=== PATIENT | male | born 1985 | race Caucasian/White ===

== ENCOUNTER 2022-08-16 12:39 | Emergency (ER) | payer OTHER, SELFPAY ==
--- NOTE | 2022-08-16 12:49 | ED.GENADULT ---
HPI - General Adult General Chief complaint: Unspecified Stated complaint: RECTAL PAIN Time Seen by Provider: 08/16/22 12:49 Source: patient and RN notes reviewed History of Present Illness HPI narrative: Patient is a 36-year-old male who presents to urgent care with complaints of rectal pain for the last month. Patient states that for the last 2 weeks it has gotten worse and more specifically this morning. Patient has a history of an anal fistula which needed surgical repair. Patient states that he has been taking Tylenol and ibuprofen for the pain. States that he called a colorectal surgeon and Dr. Shaila guevara and they advised him to obtain a referral in order to be seen prior to October. Patient states that he does not have a PCP and that he is solely here for a referral. Patient denies of any abdominal pain, nausea or vomiting. States he believes the pain has been worse since he has been driving a lot within the last week and is doing some heavy lifting at home. No other acute complaints. No acute distress noted. Patient aware of plan of care. Some parts of this dictation were generated by voice recognition software and may contain typographical and/or grammatical inaccuracies. Related Data Allergies Allergy/AdvReac Type Severity Reaction Status Date / Time No Known Allergies Allergy Unverified 08/16/22 13:01 Review of Systems Review of Systems: CONSTITUTIONAL: Denies fever, chills, or sweats. EYES: Denies visual changes, redness, or discharge. ENT: Denies rhinorrhea, congestion, sore throat, or otalgia. CARDIOVASCULAR: Denies chest pain, palpitations, or edema. RESPIRATORY: Denies cough or dyspnea. GASTROINTESTINAL: Denies abdominal pain, nausea, vomiting, or diarrhea. GENITOURINARY: Denies dysuria or hematuria. SKIN: Denies rash or itching. MUSCULOSKELETAL: Denies back pain, joint pain, or myalgia. NEUROLOGIC: Denies headache, numbness, or weakness. All other systems reviewed are negative, except as documented in HPI. PMFSH Social History Social History Smoking status: Never smoker Comments At the time of my signature, I reviewed and agree with the nursing past medical, surgical, social, and family history. There is no relevant family history pertinent to the patient complaint. Exam Narrative: GENERAL: This is a well-nourished, well-developed patient, in no apparent distress. HEAD: normocephalic, atraumatic. EYES: PERRL. Sclera clear/white. Vision is grossly intact. EARS: External ears normal NOSE: External nose normal with no obvious nasal discharge, nares without redness, no rhinorrhea. THROAT: Mucous membranes moist NECK: Neck supple GASTROINTESTINAL: Abdomen soft, non-tender, nondistended. Suspected recurrence of anal fistula on the right with moderate tenderness measuring approximately 3 x 4 cm in firmness with surrounding erythema, ecchymosis and active bloody drainage. Scarring noted from old anal fistula in the right buttocks. No notable external hemorrhoids. SKIN: warm, intact with no suspicious lesions or rash, good texture and turgor. NEURO: awake, alert, and oriented to person, place and time. There were no obvious focal neurologic abnormalities. EXTREMITIES: No clubbing, cyanosis, or edema. Course Course Level of Care: Express Care Visit Vital Signs Vital signs: Vital Signs Temperature 98.3 F 08/16/22 12:55 Pulse Rate 84 08/16/22 12:55 Respiratory Rate 18 08/16/22 12:55 Blood Pressure 139/99 H 08/16/22 12:55 Pulse Oximetry 100 08/16/22 12:55 Oxygen Delivery Room Air 08/16/22 12:55 Temperature 98.3 F 08/16/22 12:55 Pulse Rate 84 08/16/22 12:55 Respiratory Rate 18 08/16/22 12:55 Blood Pressure 139/99 H 08/16/22 12:55 Pulse Oximetry 100 08/16/22 12:55 Oxygen Delivery Room Air 08/16/22 12:55 Reviewed- Patient is informed that they may have pre-hypertension or hypertension based on a blood pressure reading in the department. I recommend
[2022-08-16 12:55] VITALS: BP 139/99; PULSE 84; RESP 18; TEMP 36.8; O2SAT 100
== END 2022-08-16 13:36 | disposition home or self-care (01) ==
PROVIDERS: Emergency Provider Nurse Practitioner Family
DX: K61.0 Anal abscess (principal)
CPT/HCPCS: 99213; G0463

== ENCOUNTER 2024-11-04 16:47 | Emergency (ER) | payer BC, SELFPAY ==
[2024-11-04 16:55] VITALS: BP 144/83; PULSE 88; RESP 18; TEMP 36.5; O2SAT 100
[2024-11-04 18:38] VITALS: BP 136/82; PULSE 78; RESP 15; TEMP 36.7; O2SAT 99
--- NOTE | 2024-11-04 19:50 | ED.SKABFB ---
HPI - Skin/Abscess/Foreign Bdy General Chief complaint: Skin/Abscess/Foreign Body Stated complaint: perianal abscess Time Seen by Provider: 11/04/24 19:10 History of Present Illness HPI narrative: 39-year-old male presents emergency department for a perianal abscess. Patient states for the past 3 days he has noticed a painful lump increasing in size to the right of his anus. He states today he was cleaning himself when the abscess burst and drained brown and bloody pus. He contacted his GI doctors here at [facility] and has an appointment scheduled on Monday but was advised to come to the ER for evaluation. He states the area is mildly draining but believes he has expressed most of the pus. He does note he has a long history of similar events. Notably 10 years ago he had an abscess that presented similarly and ended up developing a fistula. He is reporting no subjective fever last night and some nausea. Denies vomiting, mucus in his stools, blood in his stools. Related Data Allergies Allergy/AdvReac Type Severity Reaction Status Date / Time No Known Allergies Allergy Verified 08/31/22 10:13 Review of Systems Review of Systems: All systems reviewed & are unremarkable except as noted in HPI and below PMFSH Past Medical History Medical History Rectal abscess Surgical History Surgical History Anal fistula Fistulotomy in 2011 Social History Social History Smoking status: Never smoker Exam Narrative: GENERAL: Well-appearing, well-nourished, and in no acute distress. HEAD: Normocephalic, atraumatic. EYES: EOMI. ENT: Nares clear, no rhinorrhea or epistaxis. Mucous membranes moist. NECK: Supple. CHEST: Clear to auscultation. No respiratory distress. HEART: Regular rate and rhythm. No murmur heard. Normal peripheral pulses. ABDOMEN: Soft, nontender, nondistended, normal active bowel sounds. Rectal exam chaperoned by GEREMIAS Delatorre: Recently drained right perianal abscess, actively oozing serosanguineous fluid, mild surrounding induration, no fluctuance EXTREMITIES: Normal range of motion. No edema. SKIN: Warm, dry, no rash. NEURO: No focal deficits. Alert and oriented x3 Course Vital Signs Vital signs: Vital Signs Temperature 97.7 F 11/04/24 16:55 Pulse Rate 88 11/04/24 16:55 Respiratory Rate 18 11/04/24 16:55 Blood Pressure 144/83 H 11/04/24 16:55 Pulse Oximetry 100 11/04/24 16:55 Oxygen Delivery Room Air 11/04/24 16:55 Temperature 98.1 F 11/04/24 18:38 Pulse Rate 78 11/04/24 18:38 Respiratory Rate 15 11/04/24 18:38 Blood Pressure 136/82 11/04/24 18:38 Pulse Oximetry 99 11/04/24 18:38 Oxygen Delivery Room Air 11/04/24 18:38 MDM - Skin/Abscess/Foreign Bdy MDM Narrative Medical decision making narrative: 39-year-old male presents emergency department with concerns for perianal abscess x3 days. Abscess did spontaneously drain prior to arrival. Vitals are stable. Pt is afebrile and nontoxic appearing. Exam is significant for the above. There is no appreciated on exam to drain. Will obtain lab work and CT scan to evaluate for tracking abscess or fistula. Lab work with leukocytosis of 10.9. Chemistries are unremarkable. CT abdomen pelvis shows no rim enhancing fluid collection within the soft tissues of the perineum or anus. Patient updated on results. He has an appointment with his GI doctor on Monday which I strongly encouraged him to attend. Will start him on Cipro and Flagyl. He politely declined pain medications. Discussed return precautions. He is agreeable with the plan verbalized understanding. Discharged in stable condition. Lab Data 11/04/24 20:05 11/04/24 20:05 Labs: Lab Results 11/04/24 Range/Units 20:05 WBC 10.9 H (4.5-10.0) K/mm3 RBC 4.69 (4.6-6.20) M/mm3 Hgb 13.7 L (14.0-18.0) g/dL Hct 40.6 L (42.0-52.0) % MCV 86.6 (80-100) fl MCH 29.2 (26-34) pg MCHC 33.7 (32-36) g/dl RDW 12.4 (11.5-14.5) % Plt Count 193 (150-375) k/mm3 MPV 10.1 (7.4-10.4) fl Immature Gran % (Auto) 0.3 (0-0.5) % Neut % (Auto) 66.1 (45.5-73.1) % Lymph % (Auto) 23.8 (18.3-44.2) % [place] % (Auto) 8.7 H (2.6-8.5) % Eos % (Auto) 0.6 (0-4.4) % Baso % (Auto) 0.5 (0.2-1.2) % Lymph # (Auto) 2.58 (0.9-3.2) K/mm3 [place] # (Auto) 0.9 H (0.1-0.6) K/mm3 Eos # (Auto) 0.1 (0-0.3) K/mm3 Baso # (Auto) 0.1 (0.0-0.1) K/mm3 Abs Immat Gran (auto) 0.03 (0.00-0.031) K/mm3 Absolute Neuts (auto) 7.2 H (1.3-6.7) K/mm3 Absolute Nucleated RBC 0.000 (0.0-0.012) K/mm3 Nucleated RBC % 0.0 (0.0-0.2) % Sodium 141 (137-145) mmol/L Potassium 4.0 (3.4-5.0) mmol/L Chloride 105 (98-107) mmol/L Carbon Dioxide 27 (22-30) mmol/L Anion Gap 9 (4-12) mmol/L BUN 11 (9-20) mg/dL Creatinine 0.98 (0.7-1.3) mg/dL Estim Creat Clear Calc 93 ml/min Estimated GFR > 60 (59 - ) Glucose 86 (65-110) mg/dL Calcium 9.8 (8.4-10.2) mg/dL Total Bilirubin 0.8 (0.2-1.3) mg/dL AST 31 (17-59) U/L ALT 19 (6-50) U/L Alkaline Phosphatase 69 (38-126) U/L Total Protein 8.0 (6.3-8.2) g/dL Albumin 4.5 (3.5-5.1) g/dL Discharge Plan Discharge Clinical Impression: Perianal abscess Patient Disposition: Home, Self-Care Condition: Stable Instructions: Antibiotic Form, Rectal Abscess (ED) Additional Instructions: Your evaluated in the emergency department for perianal abscess. You successfully drain the abscess prior to arrival. The CT scan shows no fluid collection within the soft tissues of the perineum or anus. Please take the antibiotics as directed follow-up closely with the GI physician on Monday at her appointment. Return to the emergency department if you develop increased pain or swelling to the region, fever, or other concerning symptoms. Patient Language: Ukrainian Prescriptions: New metronidazole 500 mg tablet 500 mg PO Q8H 7 Days Qty: 21 0RF ciprofloxacin HCl 500 mg tablet 500 mg PO Q12H 7 Days Qty: 14 0RF Follow-up/Referrals: PHYSICIAN NOT ON STAFF,NONSTAFF [Primary Care Provider] - Mo Millard MD [Physician] -
[2024-11-04 20:13] LABS: Basophils Absolute Auto 0.1 K/mm3 (0.0-0.1); Basophils Percent Auto 0.5 % (0.2-1.2); Eosinophils Absolute Auto 0.1 K/mm3 (0-0.3); Eosinophils Percent Auto 0.6 % (0-4.4); Hematocrit 40.6 % (42.0-52.0); Hemoglobin 13.7 g/dL (14.0-18.0); Immature Granulocyte Absolute 0.03 K/mm3 (0.00-0.031); Immature Granulocyte Percent A 0.3 % (0-0.5); Lymphocytes Absolute Auto 2.58 K/mm3 (0.9-3.2); Lymphocytes Percent Auto 23.8 % (18.3-44.2); Mean Corpuscular HGB Conc 33.7 g/dl (32-36); Mean Corpuscular Hemoglobin 29.2 pg (26-34); Mean Corpuscular Volume 86.6 fl (80-100); Mean Platelet Volume 10.1 fl (7.4-10.4); Monocytes Absolute Auto 0.9 K/mm3 (0.1-0.6); Monocytes Percent Auto 8.7 % (2.6-8.5); Neutrophils Absolute Auto 7.2 K/mm3 (1.3-6.7); Neutrophils Percent Auto 66.1 % (45.5-73.1); Platelet Count Result 193 k/mm3 (150-375); Red Blood Count 4.69 M/mm3 (4.6-6.20); Red Cell Distribution Width 12.4 % (11.5-14.5); White Blood Count 10.9 K/mm3 (4.5-10.0)
[2024-11-04 20:29] LABS: Alanine Aminotransferase 19 U/L (6-50); Albumin Level 4.5 g/dL (3.5-5.1); Alkaline Phosphatase 69 U/L (38-126); Anion Gap 9 mmol/L (4-12); Aspartate Amino Transferase 31 U/L (17-59); Bilirubin,Total 0.8 mg/dL (0.2-1.3); Blood Urea Nitrogen 11 mg/dL (9-20); Calcium 9.8 mg/dL (8.4-10.2); Carbon Dioxide 27 mmol/L (22-30); Chloride 105 mmol/L (98-107); Estimated CRCL calculation 93 ml/min; Estimated Glomerular Filt Rate > 60; Glucose 86 mg/dL (65-110); Sodium 141 mmol/L (137-145)
[2024-11-04] MEDS: CIPROFLOXACIN 500 MG TAB PO (22:06)
[2024-11-04] MEDS: metroNIDAZOLE 500 MG TABLET PO (22:07)
== END 2024-11-04 22:09 | disposition home or self-care (01) ==
PROVIDERS: Emergency Provider Physician Assistant
DX: K61.0 Anal abscess (principal)
CPT/HCPCS: 36415; 74177; 80053; 85025; 99284; A9270; Q9967

== ENCOUNTER 2025-01-30 01:00 | Day surgery (SDC) | payer BC, SELFPAY ==
[2025-01-21 14:40] VITALS: BMI 28.0
--- OUTSIDE RECORDS SUMMARY | 2025-01-30 01:03 | XMS_ITS | Clinical Summary ---
Author Organization [facility] Address [address] [place] [address] Phone Care Team Providers Care Soldering Technician Name Role Phone Unavailable Primary Care Provider Unavailabl e Allergies No known active allergies Medications HYDROcodone-maribell taminophen (NORCO) 5-325 mg tablet Take 1 Tablet by mouth every 4 hours as needed for Pain. Max Daily Amount: 6 Tablets 20 Tablet 08/16/2017 Active cephALEXin (KEFLEX) 500 mg capsule Take 1 Capsule (500 mg) by mouth 2 times daily. 6 Capsule 08/16/2017 Active Active Problems Problem Noted Date Diagnosed Date Vasectomy evaluation 06/30/2017 Family History Medical History Relation Name Comments Healthy Father Healthy Mother Relation Name Status Comments Father Alive Mother Alive Social History Tobacco Use Types Packs/Day Years Used Date Smoking Tobacco: Never Smokeless Tobacco: Never Alcohol Use Standard Drinks/Week Comments No 0 (1 standard drink = 0.6 oz pur e alcohol) Sex and Gender Information Value Date Recorded Sex Assigned at Not on file Legal Sex Male 9:55 AM CDT Gender Identity Not on file Sexual Orientation Not on file Last Filed Vital Signs Vital Sign Reading Time Taken Comments Blood Pressure 108/70 06/30/2017 10:25 AM CDT Pulse - - Temperature - - Respiratory Rate - - Oxygen Saturation - - Inhaled Oxygen Concentration - - Weight 92.8 kg (204 lb 9.6 oz) 06/30/2017 10:25 AM CDT Height 177.8 cm (5' 10) 06/30/2017 10:25 AM CDT Body Mass Index 29.36 06/30/2017 10:25 AM CDT Plan of Treatment Health Maintenance Due Date Last Done Comments DTAP/TDAP/TD VACCINES (1 - Tdap) 2005 HEPATITIS B VACCINES (1 of 3 - 19+ 3-dose series) 2005 INFLUENZA VACCINE (#1) 2024 HPV VACCINES Aged Out No longer eligi ble based on patient's age to complete this topic [place] [address] [facility] [id number]
--- OUTSIDE RECORDS SUMMARY | 2025-01-30 01:03 | XMS_ITS | Clinical Summary ---
Author Organization [address] Address [address] [place] [id number] Care Team Providers Care Long Term Care Administrator Name Role Phone RennyGenia gonzalez Sabrina LOPEZ Primary Care Provider [phone] Allergies No known active allergies Medications cetirizine (ZyrTEC) 10 mg capsule 10 mg. 0 0 6 Active Additional Information Patient taking differently:10 mgoral Every morning, Seasonal but daily right now, Indications: Seasonal Allergic Rhinitis, allergies, Informant: Self, Reported on 01/17/2025 acetaminophen (TYLENOL) 325 mg tablet Take 2 tablets (650 mg total) by mouth every 6 (six) hours as needed for pain Active multivitamin tabletIndicati ons:Vitamin Deficiency Prevention Take 1 tablet by mouth every morning Active methylPREDNISo lone (MEDROL, DANIELLE,) 4 mg tablet TAKE DAILY DIRECTED 1 0 3 01/18/20 25 Discontin ued(Error ) Active Problems Problem Noted Date Diagnosed Date Anal fistula 01/16/2025 Encounters Date Type Department Care Team Description 01/16/2025 11:00 AM CDT Office Visit [facility] Surgery [address] [place] [address] Floor 5 [place] [address] Bibi Lucero MD Perirectal abscess from Last 3 Months Immunizations Immunization Administration Dates Next Due Influenza, Quadrivalent, Spl it, Preservative Free, Intramuscular 06/30/2017 Pfizer SARS-CoV-2 Monovalent Vaccination (12+ Yrs) PURPLE 04/16/2021,03/19/2021 Td, adsorbed 04/15/2002 Surgical History Surgery Date Site/Laterality Comments OTHER SURGICAL HISTORY 09/04/2011 - 2012 FISTULA IN ANO: RESECTED OTHER SURGICAL HISTORY 09/04/2021 - 2022 Pilonidal cyst: cyst removed Medical History Medical History Date Comments Hx Other Medical FISTULA IN ANO Pilonidal cyst Pilonidal cyst; Comments: SAB 06/05/2015 - Family History Medical History Relation Name Comments Anesthesia problems Neg Hx Social History Tobacco Use Types Packs/Day Years Used Date Smoking Tobacco: Never Smokeless Tobacco: Never Tobacco Cessation:Counseling Given: Not Answered Alcohol Use Standard Drinks/Week Comments No 0 (1 standard drink = 0.6 oz pur e alcohol) AUDIT-C Answer Date Recorded Q1: How often do you have a drink containing alc ohol? 2-3 times a week 01/17/2025 Q2: How many drinks containi ng alcohol do you have on a typical day when you are drinking? 1 or 2 01/17/2025 Q3: How often do you have si x or more drinks on one occasion? 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 Gender Identity Not on file Sexual Orientation Not on file Obstetrics History Last Filed Vital Signs Vital Sign Reading Time Taken Comments Blood Pressure 132/94 01/16/2025 11:00 AM CDT Pulse 66 01/16/2025 11:00 AM CDT Temperature 36.3 C (97.3 F) 01/16/2025 11:00 AM CDT Respiratory Rate 16 01/16/2025 11:00 AM CDT Oxygen Saturation 100% 01/16/2025 11:00 AM CDT Inhaled Oxygen Concentration - - Weight 89.8 kg (198 lb) 01/17/2025 12:10 PM CDT Height 177.8 cm (5' 10) 01/17/2025 12:10 PM CDT Body Mass Index 28.41 01/17/2025 12:10 PM CDT Plan of Treatment Upcoming Encounters Date Type Department Care Team (Latest Contact Info) Description 02/07/2025 10:00 AM CDT Hospital Encounter [facility] Operating Room [address] [place] [address] Bibi Lucero MD [address] [facility] [place] [phone] [place] [address] 02/07/2025 10:00 AM CDT Anesthesia Event [facility] Operating Room [address] [place] [address] Tomasa Kulkarni, FOOT PIECE ASSEMBLER [address] [facility] [address] [phone] [place] [address] 02/07/2025 10:00 AM CDT - 02/07/2025 11:05 AM CDT Surgery [facility] Operating Room [address] [place] [address] Bibi Lucero MD [address] [facility] [place] [phone] [place] [address] EXAM UNDER ANESTHESIA - RECTUM Scheduled Procedures Name Priority Associated Diagnoses Date/Ti me EXAM UNDER ANESTHESIA - RECTUM Anal fistula 02/07/2025 10:00 AM CDT ANAL FISTULOTOMY Anal fistula 02/07/2025 10:00 AM CDT PLACEMENT SETON Anal fistula 02/07/2025 10:00 AM CDT Health Maintenance Due Date Last Done Comments Depression Screening 1986 Hepatitis C Screening 1986 Varicella Vaccines (1 of 2 - 13+ 2-dose series) 1999 DTaP/Tdap/Td Vaccine (1 - Tdap) 04/16/2002 04/15/2002 Hepatitis B Screening 2004 Regular Well Visit/Exam 18-64 2004 Covid-19 Vaccine (3 - 2023-2 5 season) 2024 04/16/2021, 03/19/2021 Influenza Vaccine (Season Ended) 2025 06/30/2017 HPV Vaccines Aged Out No longer eligi ble based on patient's age to complete this topic Pneumococcal vaccine <65 Aged Out No longer eligible based on patient's age to complete this topic Goals Goal Patient Goal Type Associated Problems Recent Progress Patient-Stated? Author Autogenera manasa Goal Care Plan Autogenerated Problem No Gail Gunderson RN Additional Health Concerns Active Problems Noted Date Diagnosed Date Autogenerated Problem 01/23/[address] [place] [address] [place] [address] [place] [address] [place] [address] [place] [address] Care Teams Long Term Care Administrator Relationship Specialty Start Date End Date Genia Mcarthur NP [address] [place], [place] [id number] PCP - General Nurse Practitioner 11/08/24
--- OUTSIDE RECORDS SUMMARY | 2025-01-30 01:03 | XMS_ITS | Clinical Summary ---
Author Organization [facility] Address [address] [facility] [place] [address] Care Team Providers Care Obiee Report Developer Name Role Phone Unavailable Primary Care Provider Unavailabl e Source Comments [facility],non-owned Affiliates and Associated Physician Practices is amultiple site organization consisting of ambulatory clinics and hospital sitesin [place], [place] and [place]. This disclosure is being madepursuant to the Care Everywhere program and may not contain all information available regarding this patient. Last updated 18.[facility] Allergies No known active allergies Immunizations Immunization Administration Dates Next Due INFLUENZA VACCINE, QUADR. (F LUZONE; FLULAVAL; FLUARIX; AFLURIA QUADRIVALENT; 6MO+), 0.5 ML (IIV4) 06/30/2017 Social History Tobacco Use Types Packs/Day Years Used Date Smoking Tobacco: Never Assessed Sex and Gender Information Value Date Recorded Sex Assigned at Not on file Legal Sex Male 10:51 PM CDT Gender Identity Not on file Sexual Orientation Not on file Plan of Treatment Health Maintenance Due Date Last Done Comments HIV SCREENING 2001 HEPATITIS C SCREENING 08/29/2004 DTAP/TDAP/TD VACCINES (1 - Tdap) 2005 HEPATITIS B VACCINE (1 of 3 - 19+ 3-dose series) 2005 COVID-19 VACCINE ( - 2023-2 5 season) 2024 DEPRESSION SCREENING 09/04/2024 INFLUENZA VACCINE (Season Ended) 2025 06/30/20 17 ZOSTER VACCINE (1 of 2) 2036 HIB VACCINE Aged Out No longer eligi ble based on patient's age to complete this topic HPV VACCINE Aged Out No longer eligi ble based on patient's age to complete this topic MENINGOCOCCAL (Group B) VACC INE SHARED DECISION-MAKING Aged Out No longer eligibl e based on patient's age to complete this topic MENINGOCOCCAL GROUPS A/C/Y/W VACCINE Aged Out No longer eligible b ased on patient's age to complete this topic PNEUMOCOCCAL VACCINE Aged Out No long er eligible based on patient's age to complete this topic Insurance [facility]
--- OUTSIDE RECORDS SUMMARY | 2025-01-30 01:03 | XMS_ITS | Referral Summary ---
Author Organization [address] Address [address] [place] [phone] Care Team Providers Care Boots And Shoes Supervisor Name Role Phone Genia Mcarthur JOHN Primary Care Provider [phone] Encounters Date Type Department Care Team Description 01/16/2025 11:00 AM CDT Office Visit [facility] Surgery [address] [place] [address] Floor 5 [place] [address] Bibi Lucero MD Perirectal abscess from Last 3 Months Allergies No known active allergies Medications cetirizine [...] Noted Date Diagnosed Date Anal fistula 01/16/2025 Immunizations Immunization Administration Dates Next Due Influenza, Quadrivalent, Spl it, Preservative Free, Intramuscular 06/30/2017 NeoStem SARS-CoV-2 Monovalent Vaccination (12+ Yrs) PURPLE 04/16/2021,03/19/2021 Td, adsorbed 04/15/2002 Social History Tobacco Use Types Packs/Day Years [...] on file 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 Gender Identity Not on file Sexual Orientation [...] Description 02/07/2025 10:00 AM CDT Hospital Encounter [facility] Operating Room [address] [place] [address] Bibi Lucero MD [address] [place] [phone] [place] [address] 02/07/2025 10:00 AM CDT Anesthesia Event [facility] Operating Room [address]5870 [place] [address] Tomasa Kulkarni, AGRICULTURAL CHEMIST [address] [facility] [address] [phone] [place], [place] [id number] 02/07/2025 10:00 AM CDT - 02/07/2025 11:05 AM CDT Surgery [facility] Operating Room 10037 [place] [address] Bibi Lucero MD [address] [facility] [place] [phone] [place] [address] EXAM UNDER ANESTHESIA - RECTUM Scheduled Procedures Name Priority Associated Diagnoses Date/Ti me EXAM UNDER ANESTHESIA - RECTUM Anal fistula 02/07/2025 10:00 AM CDT ANAL FISTULOTOMY Anal fistula 02/07/2025 10:00 AM CDT PLACEMENT SETON Anal fistula 02/07/2025 10:00 AM CDT Goals Goal Patient Goal Type Associated Problems Recent Progress Patient-Stated? Author Autogenera manasa Goal Care Plan Autogenerated Problem No Gail Gunderson RN Additional Health Concerns Active Problems Noted Date Diagnosed Date Autogenerated Problem 01/23/[address] [place] [address] [facility] [place] [address] [place] [address] [facility] [place] [address] [place] [address] Care Teams Boots And Shoes Supervisor Relationship Specialty Start Date End Date Genia Mcarthur NP [address] [facility] [address] [place] [address] PCP - General Nurse Practitioner 11/08/24
[2025-01-30 07:41] VITALS: BP 126/85; PULSE 71; RESP 16; TEMP 36.4; O2SAT 100; BMI 27.7
[2025-01-30] MEDS: LACTATED RINGERS 1,000 ML 150 ML IV CONT (07:48)
--- NOTE | 2025-01-30 08:32 | WPDANESEPPF ---
Anes - Initial Pre Proc Eval Procedure: Operation Date: 01/30/25 09:00 Proposed Procedures p Colonoscopy - Mo Millard MD Date/Time: 01/30/25 08:32 Surgeon: Mo Millard MD Pre Op Diagnosis: Other fecal abnormalities Patient Data Age: 39 Gender: M Height: 1.78 m Weight: 87.6 kg Last Vital Signs Temp 97.5 F L 01/30/25 07:41 Pulse 71 01/30/25 07:41 Resp 16 01/30/25 07:41 BP 126/85 01/30/25 07:41 Pulse Ox 100 01/30/25 07:41 O2 Del Method Room Air 01/30/25 07:41 Allergies Allergy/AdvReac Type Severity Reaction Status Date / Time No Known Allergies Allergy Verified 01/30/25 07:41 Home Medications ?Medication ?Instructions ?Recorded ?Confirmed ?Type cetirizine 10 mg capsule (Allergy 10 mg PO DAILY PRN allergy symptoms 01/21/25 01/30/25 History Relief (cetirizine)) Patient hx anesthesia problems: none Family hx anesthesia problems: none Results Review: All pre-operative results and documents have been reviewed as part of the pre-operative evaluation. [facility] Past Medical History Medical History Rectal abscess Surgical History Surgical History Anal fistula Fistulotomy in 2011 Social History Social History Smoking status: Never smoker Alcohol intake: current Drinks per week: 2 Substance use: never Substance use type: does not use Living arrangements: with family Spiritual care concerns: No Anes - Eval Final PreProcedure Day of Procedure 01/30/25 08:32 Patient weight: normal Heart: regular rate and rhythm Lungs: clear to auscultation Airway: Mallampati scale class II Neurological: alert and oriented Last oral intake: >/= 8 hours ASA classification: I Emergent: no Anesthetic plan: proceed Anesthesia type and monitoring: general GIVS and standard monitoring Results Review: All pre-operative results and documents have been reviewed as part of the pre-operative evaluation. Informed Consent: The patient's anesthetic plan and its attendant risks and benefits were discussed with the patient/family/POA. Questions were solicited and answers provided to the satisfaction of the patient/family/POA.
--- NOTE | 2025-01-30 08:50 | PM.HPGS ---
History of Present Illness History of Present Illness Consent: Risks, benefits, and alternatives have been discussed and questions answered. Patient agrees to proceed with procedure. Chief complaint: Other fecal abnormalities Narrative: Ariel Pyle is a 39 year old male here for first colonoscopy, had recurrent perianal abscess- he is actually having procedure by colorectal surgery next week at [facility] [facility] Review of Systems Review of Systems: All systems reviewed & are unremarkable except as noted in HPI and below PMFSH Past Medical History Medical History Rectal abscess Surgical History Surgical History Anal fistula Fistulotomy in 2011 Social History Social History Smoking status: Never smoker Alcohol intake: current Drinks per week: 2 Substance use: never Substance use type: does not use Living arrangements: with family Spiritual care concerns: No Meds Home Medications and Allergies Home Medications ?Medication ?Instructions ?Recorded ?Confirmed ?Type cetirizine 10 mg capsule (Allergy 10 mg PO DAILY PRN allergy symptoms 01/21/25 01/30/25 History Relief (cetirizine)) Allergies Allergy/AdvReac Type Severity Reaction Status Date / Time No Known Allergies Allergy Verified 01/30/25 07:41 Vital Signs Vital Signs - 24 hr 01/30/25 07:41 Temperature 97.5 F L Pulse Rate 71 Respiratory Rate 16 Blood Pressure 126/85 Pulse Oximetry 100 Oxygen Delivery Room Air Exam Const: General: comfortable and no acute distress HENMT: Face/Nose/Sinus: Normal nares present Eyes: General: appearance normal, both eyes and all related structures Neck: Neck: no JVD Resp: Auscultation: clear to auscultation bilaterally Cardio: Rate: regular rate Rhythm: regular rhythm GI: Inspection: non-distended GI Palp: Yes Soft to palpation Skin: General skin exam: normal color Neuro: General: gait normal Speech: normal speech Extrem: General: normal to inspection Psych: Mental Status: mental status grossly normal Assessment and Plan Assessment and plan (1) Perirectal abscess: Code(s): K61.1 - Rectal abscess Status: Acute Assessment and Plan: colonoscopy he is already established with [facility]
[2025-01-30 09:13] VITALS: BP 96/61; PULSE 64; RESP 17; O2SAT 98
[2025-01-30 09:23] VITALS: BP 96/63; PULSE 58; RESP 18; O2SAT 100
[2025-01-30 09:33] VITALS: BP 103/69; PULSE 60; RESP 21; O2SAT 98
== END 2025-01-30 09:44 | disposition home or self-care (01) ==
PROVIDERS: Referring Provider Nurse Practitioner Family; Visit Provider Internal Medicine Gastroenterology
PROC: 0DJD8ZZ Inspection of Lower Intestinal Tract, Via Natural or Artificial Opening Endoscopic (ICD-10-PCS; CPT 45378; principal; 2025-01-30 09:00)
DX: R19.5 Other fecal abnormalities (principal); K64.8 Other hemorrhoids
CPT/HCPCS: 45378; J2003; J2704; J7120